=== PATIENT | male | born 1965 | race Caucasian/White ===

== ENCOUNTER 2017-12-24 03:55 | Inpatient (IN) | payer OTHER ==
[~2017-12-24] VITALS: Ht 180.3 cm; Wt 103.4 kg
[2017-12-24 03:55] VITALS: BP 166/95
[~2017-12-24 03:55] MED LIST: ACET-8386 PO; OMEP40EC1 PO
--- NOTE | 2017-12-24 03:55 | NUR ---
TO ER BED 11
--- NOTE | 2017-12-24 04:00 | NUR ---
PATIENT IS A 52 Y/O MALE WHO PRESENTS TO THE ED C/O CHEST PAIN. PT STATES THAT IT STARTED X4 HOURS AGO. PT REPORTS 8/10 ACHING CHEST PAIN THAT DOES NOT RADIATE. PT DENIES SOB, REPORTS NON-PRODUCTIVE COUGH, DENIES N/V/D. PT AAOX4, RR EVEN/UNLABORED. PT REPOSITIONED FOR COMFORT, BED IN LOWEST POSITION. ER MD DR. SANCHEZ NOTIFIED. WILL CONTINUE TO MONITOR.
--- NOTE | 2017-12-24 04:12 | NUR ---
DR. SANCHEZ AT BEDSIDE EVALUATING PT.
[2017-12-24] MEDS ORDERED: ASPIRIN 325 MG TAB PO ONE (04:20)
[2017-12-24] MEDS ORDERED: ENALAPRIL 10 MG TAB PO ONE (04:20)
[2017-12-24] MEDS ORDERED: MORPHINE SULFATE 2 MG/ML SYR IVP ONE (04:20)
[2017-12-24 04:24] LABS: BASOPHILS % (AUTO) 0.3 % (0.0-2.0); EOSINOPHILS # (AUTO) 0.1 K/uL (0-0.4); EOSINOPHILS % (AUTO) 0.6 % (0.0-4.0); HEMATOCRIT 50.3 % (36-52); LYMPHOCYTES % (AUTO) 12.7 % (20.5-51.1); MEAN CORPUSCULAR HEMOGLOBIN 31 pg (27-31); MEAN CORPUSCULAR HGB CONC 34 g/dL (33-37); MONOCYTES # (AUTO) 1.3 K/uL (0.8-1.0); MONOCYTES % (AUTO) 8.1 % (1.7-9.3); NEUTROPHILS # (AUTO) 12.2 K/uL (1.8-7.7); NEUTROPHILS % (AUTO) 78.3 % (42.2-75.2); PLATELET COUNT (AUTO) 234 K/uL (140-450); RED BLOOD CELL COUNT(AUTO) 5.53 MIL/uL (4.20-6.10)
[2017-12-24] MEDS ORDERED: MORPHINE SULFATE 4 MG/ML SYR ONE (04:25)
[2017-12-24 04:34] LABS: ANION GAP 11.4 (8-16); CARBON DIOXIDE 28.7 mmol/L (21-32); POTASSIUM 3.1 mmol/L (3.5-5.1)
[2017-12-24 04:38] LABS: ALBUMIN 3.9 g/dL (3.4-5.0); TOTAL BILIRUBIN 0.5 mg/dL (0.0-1.0)
[2017-12-24 04:39] LABS: WHITE BLOOD COUNT (AUTO) 15.6 K/uL (4.8-10.8)
[2017-12-24 04:43] LABS: APPEARANCE,URINE CLEAR (CLEAR); BILIRUBIN,URINE NEGATIVE (NEGATIVE); BLOOD, URINE TRACE-I (NEGATIVE); COLOR,URINE YELLOW (YELLOW); LEUKOCYTE ESTERASE ,URINE NEGATIVE (NEGATIVE); NITRITE, URINE NEGATIVE (NEGATIVE); PH,URINE 6.5 (5.0-9.0); UGLUCOSE NEGATIVE (NEGATIVE)
[2017-12-24] MEDS ORDERED: VANCOMYCIN 1,000 MG in DEXTROSE 5% 250 ML IV ONE (04:45)
[2017-12-24] MEDS ORDERED: LEVOFLOXACIN 750 MG/D5W PREMIX 150 ML IV ONE (04:45)
--- NOTE | 2017-12-24 05:42 | NUR ---
PATIENT RESTING AT THIS TIME. NO SIGNS OF DISTRESS.
[2017-12-24] MEDS ORDERED: VANCOMYCIN 1,000 MG VIAL ONE (05:48)
--- NOTE | 2017-12-24 06:38 | NUR ---
PATIENT RESTING AT THIS TIME. NO SIGNS OF DISTRESS. FAMILY AT BEDSIDE.
--- NOTE | 2017-12-24 07:05 | NUR ---
Pt report given to KEVIN WHITE. Transfer of care at this time.
[2017-12-24] MEDS ORDERED: POTASSIUM CHL 40 MEQ/ D5-1/2NS 1,000 ML IV STA (08:05)
[2017-12-24] MEDS: DEXT 5% / NACL 0.45% 1,000 ML IV SCH ×2 (08:06→23:40)
[2017-12-24] MEDS ORDERED: DOCU100C16 PO (08:09)
[2017-12-24] MEDS ORDERED: ACETAMINOPHEN 325 MG TAB PO PRN (08:10)
[2017-12-24] MEDS ORDERED: HYDROcodone/APAP 5/325 MG 1 TAB TAB PO PRN ×2 (08:10)
[2017-12-24] MEDS ORDERED: ONDANSETRON 4 MG/2 ML VIAL IVP PRN (08:10)
[2017-12-24] MEDS ORDERED: ALBUTEROL 0.083% 2.5 MG/3 ML NEBU IH PRN (08:10)
--- NOTE | 2017-12-24 08:33 | NUR ---
PT RESTING COMFORTABLY NO ACUTE DISTRESS NOTED, PT MADE AWARE OF PENDING ADMISSION/AVAILABLE ROOM, WILL CONTINUE TO MONITOR
[2017-12-24] MEDS: ENOXAPARIN 40 MG/0.4 ML SYR SUBQ SCH (09:00)
--- NOTE | 2017-12-24 09:00 | NUR ---
Patient will be admitted to care of DR LINDSAY. Admited to TELE. Will go to [id number]. Belongings list completed. Report to CINDY ESPINAL.
--- NOTE | 2017-12-24 09:10 | NUR ---
PT SENT TO TELE UNIT WITH COMPLAINTS OF CHEST PAIN. PT HAD RECENTLY HAD ABDOMINAL SURGERY FOR A HERNIA REPAIR ON November. PT HAS 2 IV ACCESS SITES ONE ON THE RIGHT F/A 20G AND ONE ON THE LEFT F/A WITH 18 GAUGE, FLUSHED PATENT WITH NO S/S OF INFILTRATION NOTED. PT IS ALERT AND ORIENTED POLISH SPEAKING ONLY. PT MADE COMFORTABLE, BED LOCKED AND IN LOW POSITION WITH CALL DICKEY IN REACH
[2017-12-24] MEDS: PANTOPRAZOLE 40 MG TABEC PO SCH (10:22)
[2017-12-24] MEDS: KCL 20 MEQ/WATER INJ PREMIX 100 ML IV SCH ×2 (10:30→11:00)
--- NOTE | 2017-12-24 11:26 | NUR ---
PATIENT HAS BEEN SCREENED AND CATEGORIZED LOW NUTRITION RISK. PATIENT WILL BE SEEN WITHIN 7 DAYS OF ADMISSION. 12/31/[address]
[2017-12-24 12:00] VITALS: BP 115/80
--- NOTE | 2017-12-24 13:42 | NUR ---
PT SITTING UP IN BED ALERT AND ORIENTED WITH C/O OF PAIN 10/06.PT DECLINES PAIN MEDICATION AT THIS TIME. PRIMARY DOCTOR AT BEDSIDE EVALUATING PT.
--- NOTE | 2017-12-24 14:00 | NUR ---
PATIENT COMPLAINING OF DISCOMFORT WITH IV POTASSIUM INFUSION, RATE DECREASED TO 30ML/HR. WILL CONTINUE TO MONITOR.
--- NOTE | 2017-12-24 14:55 | NUR ---
PATIENT NOT TOLERATING POTASSIUM IV. CALLED DR. LINDSAY TO LET HIM KNOW PATIENT IS NOT TOLERATING IV. I ASKED IF IT WAS OK TO ORDER K DUR PO, PER DR. LINDSAY GIVE 40 MEQ.
[2017-12-24 16:00] VITALS: BP 107/73
[2017-12-24] MEDS ORDERED: POTASSIUM CHLORIDE 10 MEQ TABER PO SCH (17:00)
--- NOTE | 2017-12-24 18:00 | NUR ---
CALLED DR. LINDSAY TO CLARIFY CHEST X-RAY ORDER. DR. ROSENBERG FILTER PRESS OPERATOR. PER DOCTOR SHAKIRA DO 2 VIEW OF CHEST X-RAY.
--- NOTE | 2017-12-24 18:27 | NUR ---
PT SITTING UP IN BED NO S/S PAIN OR DISTRESS. PT ATE 100% OF DINNER AND VISITORS ARE AT BEDSIDE.
--- NOTE | 2017-12-24 19:36 | NUR ---
TRANSFER OF CARE FROM DAY SHIFT TO NIGHT TO JACQUELYN WHITE
--- NOTE | 2017-12-24 19:37 | NUR ---
RECEIVED BEDSIDE REPORT FROM DAY SHIFT NURSE TEDDY RN, PT STABLE, NO DISTRESS NOTED, IV TO L AC 18G AND R AC 20G SL, PATENT, INFUSING WELL, PT IS BEING PICKED UP BY TECH FOR X-RAY, PT ON ROOM AIR NO SOB NOTED, FAMILY BY BEDSIDE, INITIAL ASSESSMENT DONE, ALL SAFETY PRECAUTION MET, WILL CONTINUE TO MONITOR.
--- NOTE | 2017-12-24 19:50 | NUR ---
PT CAME BACK FROM XRAY, VIA WHEELCHAIR, PT STABLE, NO DISTRESS NOTED, CALL LIGHT WITHIN REACH, WILL CONTINUE TO MONITOR.
[2017-12-24 20:00] VITALS: BP 112/74
--- NOTE | 2017-12-24 20:20 | NUR ---
CHECKED ON PT, PT STABLE, NO DISTRESS NOTED, CALL LIGHT WITHIN REACH, WILL CONTINUE TO MONITOR.
--- NOTE | 2017-12-24 21:07 | NUR ---
CALLED DR. ROSENBERG REGARDING PT CXRAY RESULT, STATED UNDERSTANDING, NO NEW ORDERS.
--- NOTE | 2017-12-24 22:10 | NUR ---
CHECKED ON PT, PT RESTING ON BED, NO DISTRESS NOTED, STATED PAIN TOLERABLE AT THIS MOMENT, PT STABLE, CALL LIGHT WITHIN REACH, WILL CONTINUE TO MONITOR.
[2017-12-24 22:14] VITALS: BP 112/74
--- NOTE | 2017-12-24 23:00 | NUR ---
ENDORSED PLAN OF CARE TO NURSE DANY WHITE, FOR CONTINUOUS OF CARE, PT STABLE, NO DISTRESS NOTED, CALL LIGHT WITHIN REACH.
--- NOTE | 2017-12-24 23:01 | NUR ---
RECEIVED REPORT AT PT BEDSIDE FROM DAY SHIFT RN, FOR CONTINUITY OF CARE. PATIENT IS AWAKE, A/OX4 ON ROOM AIR, BULGARIAN SPEAKING. ABLE TO MAKE NEEDS KNOWN, ABLE TO FOLLOW COMMANDS. PT SKIN INTACT, WARM AND DRY. PATIENT HAS PERIPHERAL IV SITE TO RIGHT AC 20G, AND A LEFT AC 18G IV, BOTH ASYMPTOMATIC, INTACT, PATENT. RESPIRATIONS EVEN AND UNLABORED. UPDATED BOARD. DISCUSSED PLAN OF CARE WITH PT, PT VERBALIZED UNDERSTANDING. VITAL SIGNS WNL. PT STABLE, NO SIGNS OF DISTRESS NOTED AT THIS TIME. BED IN LOWEST POSITION, CALL LIGHT WITHIN REACH. WILL CONTINUE TO MONITOR.
[2017-12-25] VITALS: BP 114/81
--- NOTE | 2017-12-25 | NUR ---
VITAL SIGNS WNL. PT STABLE, NO SIGNS OF DISTRESS NOTED AT THIS TIME. BED IN LOWEST POSITION, CALL LIGHT WITHIN REACH. WILL CONTINUE TO MONITOR.
--- NOTE | 2017-12-25 02:00 | NUR ---
PT STABLE, NO SIGNS OF DISTRESS NOTED AT THIS TIME. BED IN LOWEST POSITION, CALL LIGHT WITHIN REACH. WILL CONTINUE TO MONITOR.
[2017-12-25 04:00] VITALS: BP 106/72
--- NOTE | 2017-12-25 04:00 | NUR ---
VITAL SIGNS WNL. PT STABLE, NO SIGNS OF DISTRESS NOTED AT THIS TIME. BED IN LOWEST POSITION, CALL LIGHT WITHIN REACH. WILL CONTINUE TO MONITOR.
[2017-12-25] MEDS: LEVOFLOXACIN 750 MG/D5W PREMIX 150 ML IV SCH (06:01)
--- NOTE | 2017-12-25 06:38 | NUR ---
PT STABLE, NO SIGNS OF DISTRESS NOTED AT THIS TIME. BED IN LOWEST POSITION, CALL LIGHT WITHIN REACH. WILL CONTINUE TO MONITOR.
[2017-12-25 06:54] LABS: BASOPHILS % (AUTO) 0.4 % (0.0-2.0); EOSINOPHILS # (AUTO) 0.1 K/uL (0-0.4); EOSINOPHILS % (AUTO) 0.9 % (0.0-4.0); HEMATOCRIT 45.4 % (36-52); HEMOGLOBIN 15.2 g/dL (12.0-18.0); LYMPHOCYTES # (AUTO) 2.8 K/uL (2.0-11.5); LYMPHOCYTES % (AUTO) 32.4 % (20.5-51.1); MEAN CORPUSCULAR HEMOGLOBIN 31 pg (27-31); MEAN CORPUSCULAR HGB CONC 33 g/dL (33-37); MEAN CORPUSCULAR VOLUME 92.8 fL (80-94); MONOCYTES # (AUTO) 1.2 K/uL (0.8-1.0); MONOCYTES % (AUTO) 13.9 % (1.7-9.3); NEUTROPHILS # (AUTO) 4.5 K/uL (1.8-7.7); NEUTROPHILS % (AUTO) 52.4 % (42.2-75.2); PLATELET COUNT (AUTO) 205 K/uL (140-450); RED CELL DISTRIBUTION WIDTH 14.3 % (11.6-13.7); WHITE BLOOD COUNT (AUTO) 8.6 K/uL (4.8-10.8)
[2017-12-25 07:14] LABS: ALBUMIN 3.1 g/dL (3.4-5.0); ANION GAP 9.1 (8-16); CARBON DIOXIDE 28.7 mmol/L (21-32); POTASSIUM 3.8 mmol/L (3.5-5.1); TOTAL BILIRUBIN 0.8 mg/dL (0.0-1.0)
--- NOTE | 2017-12-25 07:30 | NUR ---
RECEIVED REPORT FROM PM NURSE,PATIENT SLEEPING BUT AROUSABLE. BELARUSIAN SPEAKING. ON ROOM AIR, NO S/S OF RESPIRATORY DISTRESS NOTED. ABLE TO MAKE NEEDS KNOWN, ABLE TO FOLLOW COMMANDS. PATIENT HAS PERIPHERAL IV SITE TO RIGHT AC 20G, AND A LEFT AC 18G IV, BOTH ASYMPTOMATIC, INTACT, DISCUSSED PLAN OF CARE WITH PT, PT VERBALIZED UNDERSTANDING. VITAL SIGNS WNL. BED IN LOWEST POSITION, CALL LIGHT WITHIN REACH. WILL CONTINUE TO MONITOR.
--- NOTE | 2017-12-25 07:32 | NUR ---
ENDORSED PT TO DAY SHIFT RN FOR CONTINUITY OF CARE. PT IN STABLE CONDITION.
[2017-12-25 08:00] VITALS: BP 120/76
[2017-12-25] MEDS ORDERED: AZITHROMYCIN 500 MG in DEXTROSE 5% 250 ML IV SCH (08:10)
[2017-12-25] MEDS: ASPIRIN 81 MG TAB.CHEW PO SCH (08:37)
[2017-12-25] MEDS: PANTOPRAZOLE 40 MG TABEC PO SCH (08:37)
[2017-12-25] MEDS: ENOXAPARIN 40 MG/0.4 ML SYR SUBQ SCH (08:41)
[2017-12-25] MEDS ORDERED: LEVO750T2 PO (09:49)
--- NOTE | 2017-12-25 10:25 | NUR ---
PT SIGNED CONSENT FOR CHEST CT WITH CONTRAST, CALLED RADIOLOGY DEPARTMENT PT IS READY.
--- NOTE | 2017-12-25 10:45 | NUR ---
PAGED DR. OMAYRA Griffin [phone] AGAIN, WILL FOLLOW UP. Addendum: 12/25/17 at 1152 by Giovanna Tirado RN WRONG PT
[2017-12-25 12:00] VITALS: BP 114/74
--- NOTE | 2017-12-25 14:10 | NUR ---
PT RESTING IN BED COMFORTABLY, DENIES PAIN OR DISCOMFORT AT THIS TIME.
--- NOTE | 2017-12-25 15:00 | NUR ---
PT LEFT FOR CT WITH CONTRAST.
[2017-12-25 16:00] VITALS: BP 117/83
--- NOTE | 2017-12-25 17:15 | NUR ---
NOTIFIED DR. LINDSAY CT REPORT AND BLOOD CULTURE REPORT IS STILL PENDING, PER DR. LINDSAY , CANCEL DISCHARGE ORDER. NOTIFIED PT, PT VERBALIZED UNDERSTANDING.
--- NOTE | 2017-12-25 19:15 | NUR ---
RECEIVED REPORT AT PT BEDSIDE FROM DAY SHIFT RN, FOR CONTINUITY OF CARE. PATIENT IS AWAKE, A/OX4 ON ROOM AIR, SAMI SPEAKING. ABLE TO MAKE NEEDS KNOWN, ABLE TO FOLLOW COMMANDS. PT SKIN INTACT, WARM AND DRY. PATIENT HAS PERIPHERAL IV SITE TO RIGHT AC 20G, AND A LEFT AC 18G IV, BOTH ASYMPTOMATIC, INTACT, PATENT. RESPIRATIONS EVEN AND UNLABORED. UPDATED BOARD. DISCUSSED PLAN OF CARE WITH PT, PT VERBALIZED UNDERSTANDING. VITAL SIGNS WNL. PT STABLE, NO SIGNS OF DISTRESS NOTED AT THIS TIME. BED IN LOWEST POSITION, CALL LIGHT WITHIN REACH. WILL CONTINUE TO MONITOR.
[2017-12-25 20:00] VITALS: BP 121/78
--- NOTE | 2017-12-25 22:48 | NUR ---
PT RESTING COMFORTABLY IN BED. PT STABLE, NO SIGNS OF DISTRESS NOTED AT THIS TIME. BED IN LOWEST POSITION, CALL LIGHT WITHIN REACH. WILL CONTINUE TO MONITOR.
[2017-12-26] VITALS: BP 133/90
--- NOTE | 2017-12-26 | NUR ---
VITAL SIGNS WNL. PT STABLE, NO SIGNS OF DISTRESS NOTED AT THIS TIME. BED IN LOWEST POSITION, CALL LIGHT WITHIN REACH. WILL CONTINUE TO MONITOR.
[2017-12-26 04:00] VITALS: BP 125/65
--- NOTE | 2017-12-26 04:00 | NUR ---
VITAL SIGNS WNL. PT STABLE, NO SIGNS OF DISTRESS NOTED AT THIS TIME. BED IN LOWEST POSITION, CALL LIGHT WITHIN REACH. WILL CONTINUE TO MONITOR.
[2017-12-26] MEDS: LEVOFLOXACIN 750 MG/D5W PREMIX 150 ML IV SCH (05:36)
--- NOTE | 2017-12-26 07:15 | NUR ---
ENDORSED PT TO DAY SHIFT RN FOR CONTINUITY OF CARE. PT IN STABLE CONDITION.
--- NOTE | 2017-12-26 07:15 | NUR ---
PATIENT IS AWAKE, ALERT AND ORIENTEDX4. NO COMPLAINTS AT THIS TIME. NO SIGNS OF RESP DISTRESS ON ROOM AIR. HE IS AMBULATORY. [facility] IN PLACE. R AC 18 G SALINE LOCK. IV IS CLEAN, DRY AND INTACT. SKIN IS INTACT. BED IN LOW POSITION. CALL LIGHT WITHIN REACH. WILL CONTINUE TO MONITOR THE PATIENT.
[2017-12-26 08:00] VITALS: BP 135/90
[2017-12-26] MEDS: ASPIRIN 81 MG TAB.CHEW PO SCH (09:27)
[2017-12-26] MEDS: ENOXAPARIN 40 MG/0.4 ML SYR SUBQ SCH (09:28)
[2017-12-26] MEDS: PANTOPRAZOLE 40 MG TABEC PO SCH (09:29)
--- NOTE | 2017-12-26 09:31 | NUR ---
ADMINISTERED MEDS. PATIENT TOLERATED WELL. NO COMPLAINTS AT THIS TIME. WILL CONTINUE TO MONITOR THE PATIENT. CALL LIGHT WITHIN REACH.
[2017-12-26 09:44] LABS: BASOPHILS # (AUTO) 0.1 K/uL (0.00-0.22); BASOPHILS % (AUTO) 1.5 % (0.0-2.0); EOSINOPHILS # (AUTO) 0.1 K/uL (0-0.4); EOSINOPHILS % (AUTO) 1.3 % (0.0-4.0); HEMATOCRIT 49.1 % (36-52); HEMOGLOBIN 16.4 g/dL (12.0-18.0); LYMPHOCYTES # (AUTO) 1.6 K/uL (2.0-11.5); LYMPHOCYTES % (AUTO) 23.7 % (20.5-51.1); MEAN CORPUSCULAR HEMOGLOBIN 31 pg (27-31); MEAN CORPUSCULAR HGB CONC 34 g/dL (33-37); MEAN CORPUSCULAR VOLUME 92.2 fL (80-94); MONOCYTES # (AUTO) 0.6 K/uL (0.8-1.0); MONOCYTES % (AUTO) 9.4 % (1.7-9.3); NEUTROPHILS # (AUTO) 4.3 K/uL (1.8-7.7); NEUTROPHILS % (AUTO) 64.1 % (42.2-75.2); PLATELET COUNT (AUTO) 210 K/uL (140-450); RED BLOOD CELL COUNT(AUTO) 5.32 MIL/uL (4.20-6.10); RED CELL DISTRIBUTION WIDTH 14.3 % (11.6-13.7); WHITE BLOOD COUNT (AUTO) 6.7 K/uL (4.8-10.8)
--- NOTE | 2017-12-26 10:34 | NUR ---
PAGED DOCTOR ADRIANO TO SEE IF HE WILL CLEAR PATIENT FOR DISCHARGE. WILL AWAIT HIS CALL.
[2017-12-26 10:56] LABS: ALBUMIN 3.6 g/dL (3.4-5.0); ANION GAP 12.7 (8-16); CARBON DIOXIDE 28.9 mmol/L (21-32); CREATININE 0.9 mg/dL (0.7-1.3); POTASSIUM 3.6 mmol/L (3.5-5.1); TOTAL BILIRUBIN 0.7 mg/dL (0.0-1.0)
[2017-12-26 12:00] VITALS: BP 123/81
--- NOTE | 2017-12-26 12:00 | NUR ---
PATIENT WITH FAMILY AT BEDSIDE. NO SIGNS OF DISTRESS ON ROOM AIR. NO COMPLAINTS AT THIS TIME. PATIENT IS AWAITING DISCHARGE. WILL CONTINUE TO MONITOR THE PATIENT. FAMILY AT BEDSIDE
--- NOTE | 2017-12-26 15:14 | NUR ---
REMOVED ID BANDS. REMOVED IV. TIP OF IV IS INTACT. REMOVED TELE MONITOR. PATIENT CHANGED FOR DISCHARGE. EXPLAINED DISEASE PROCESS, EDUCATED ON DISEASE, ABN SIGNS AND SYMPTOMS. WHEN TO GO TO THE NEAREST ER. EDUCATED ON HAVING TO MAKE AN APPOINTMENT WITH PCP 2-3DAYS. PATIENT AND SON VERBALIZED UNDERSTANDING. NO PRESCRIPTIONS ORDERED. EDUCATED ON TAKING MEDS THAT WERE HOME MEDS BEFORE HOSPITALIZATION. PATIENT WALKED AND IN STABLE CONDITION TO THE LOBBY WITH FAMILY AND MYSELF.
== END 2017-12-26 15:14 | disposition home or self-care (01) | DRG 203 ==
LOC: MED 03:55 → MTU 08:06
PROVIDERS: ADMIT Hospitalist; ATTEND Hospitalist
DX: M94.0 Chondrocostal junction syndrome [Tietze] (principal); K21.9 Gastro-esophageal reflux disease without esophagitis; Z90.49 Acquired absence of other specified parts of digestive tract; M54.9 Dorsalgia, unspecified
CPT/HCPCS: 36415; 71045; 71046; 71270; 80053; 81003; 83735; 84484; 85025; 87040; 87081; 87086; 96365; 96367; 96375; 99285; J1650; J1956; J2270; J3370; J3480; J7030; Q0092; Q9967